=== PATIENT | female | born 1970 | race African-American/Black ===

== ENCOUNTER 2018-02-20 18:54 | Emergency (ER) | payer MEDICARE, OTHER ==
[~2018-02-20] VITALS: Ht 170.2 cm; Wt 120.0 kg
[2018-02-20] MEDS ORDERED: IBUPROFEN 600MG TABLET PO STA (19:32)
[2018-02-20 20:18] LABS: BASOPHILS % 0.4 % (0.0-2.0); EOSINOPHILS % 2.3 % (0.0-5.0); LYMPHOCYTES % 22.3 % (20.0-50.0); MEAN CORPUSCULAR HEMOGLOBIN 28.8 pg (28.0-32.0); MEAN CORPUSCULAR VOLUME 84.5 fL (81.0-99.0); MEAN PLATELET VOLUME 9.8 fl (7.4-10.4); MONOCYTES % 4.2 % (2.0-8.0); NEUTROPHILS % 70.8 % (40.0-76.0); PLATELET 267 x1000/uL (130-400); RED BLOOD CELL COUNT 4.86 mill/uL (4.2-5.4); RED CELL DISTRIBUTION WIDTH 13.9 % (11.6-14.6)
[2018-02-20 20:19] LABS: CHLORIDE 103 mEq/L (98-107)
[2018-02-20] MEDS ORDERED: MORPHINE SULFATE 4 MG/ML CPJ (NOT FOR IM USE) IV ONE (22:15)
[2018-02-20] MEDS ORDERED: METOCLOPRAMIDE HCL 10MG/2ML VIAL IV ONE (22:15)
[2018-02-21 01:17] VITALS: BP 122/77
== END 2018-02-21 01:19 | disposition home or self-care (01) ==
LOC: ER 18:54
DX: R51 Headache (principal)
CPT/HCPCS: 36415; 70450; 71045; 80053; 81025; 83880; 84443; 84484; 85025; 85610; 85651; 93005; 96374; 96375; 99285; J2270; J2765